=== PATIENT | female | born 1960 | race Caucasian/White ===

== ENCOUNTER 2020-09-21 22:45 | Observation (INO) | payer MEDICARE, MEDICAID, SELFPAY ==
--- NOTE | ~2020-09-21 | US_ITS ---
EXAMINATION: US venous doppler [facility] DATE: 09/22/2020 14:59 INDICATION: Lower extremity edema. TECHNIQUE: Grayscale ultrasound images without and with compression and Doppler ultrasound images of the bilateral lower extremity veins were obtained. COMPARISON: None. FINDINGS: The visualized portions of right common femoral vein, profunda (deep) femoral vein, femoral vein, pop liteal vein, peroneal veins, posterior tibial veins, and greater saphenous vein outflow are patent. The visualized portions of left common femoral vein, profunda femoral vein, femoral vein, popliteal v ein, peroneal veins, posterior tibial veins, and greater saphenous vein outflow are patent. IMPRESSION: 1. No deep venous thrombosis. Reviewed, dictated and finalized at location A.
--- NOTE | ~2020-09-21 | XR_ITS ---
EXAMINATION: XR chest 2V DATE: 09/21/2020 23:06 INDICATION: Shortness of breath and bilateral lower limb swelling. TECHNIQUE: PA and lateral views of the chest were obtained. COMPARISON: Chest radiograph dated 02/22/2016 FINDINGS: Cardiomegaly with pulmonary vascular congestion but without kristina pulmonary edema. On the lateral pro jection there is an unchanged of linear band of discoid atelectasis/scarring. Calcified nodule at the right apex with calcified mediastinal lymph nodes consistent with old granulomatous disease. No new airspace opacities, pulmonary edema, pleural effusion or pneumothorax. Mild thoracic spondylosis. IMPRESSION: 1. Cardiomegaly with pulmonary vascular congestion but without kristina pulmonary edema Reviewed, dictated and finalized at location A.
[2020-09-21 22:47] VITALS: BP 138/80; PULSE 76; RESP 20; TEMP 36.6; O2SAT 98
--- NOTE | 2020-09-21 22:51 | ECG_ITS ---
Measurements Intervals [place] Rate: 76 P: 38 WV: 193 QRS: -46 QRSD: 119 T: 139 QT: 407 QTc: 458 Interpretive Statements SINUS RHYTHM POSSIBLE LEFT ATRIAL ENLARGEMENT LEFT AXIS DEVIATION DELAYED PRECORDIAL R/S TRANSITION LEFT VENTRICULAR HYPERTROPHY AND ST-T CHANGE BORDERLINE ST-T WAVE ABNORMALITY- LATERAL LEADS BORDERLINE ECG Electronically Signed On 09-22-2020 5:49:49 CDT by Torito Siegel D.O.
[2020-09-21 23:17] LABS: Basophils Percent Auto 0.5 % (0.2-1.2); Eosinophils Absolute Auto 0.2 K/mm3 (0-0.3); Eosinophils Percent Auto 2.8 % (0-4.4); Hematocrit 36.8 % (37.0-47.0); Hemoglobin 10.9 g/dL (12.0-15.0); Immature Granulocyte Absolute 0.02 K/mm3 (0.00-0.031); Immature Granulocyte Percent A 0.4 % (0-0.5); Lymphocytes Absolute Auto 0.84 K/mm3 (0.9-3.2); Lymphocytes Percent Auto 14.8 % (18.3-44.2); Mean Corpuscular HGB Conc 29.6 g/dl (32-36); Mean Corpuscular Volume 84.4 fl (80-100); Mean Platelet Volume 9.6 fl (7.4-10.4); Monocytes Absolute Auto 0.3 K/mm3 (0.1-0.6); Neutrophils Absolute Auto 4.3 K/mm3 (1.3-6.7); Neutrophils Percent Auto 75.5 % (45.5-73.1); Platelet Count Result 300 k/mm3 (150-375); Red Blood Count 4.36 M/mm3 (4.2-5.4); Red Cell Distribution Width 15.9 % (11.5-14.5); White Blood Count 5.7 K/mm3 (4.5-10.0)
[2020-09-21 23:27] LABS: Anion Gap 6 mmol/L (8-16); Blood Urea Nitrogen 13 mg/dL (7-17); Calcium 8.7 mg/dL (8.4-10.2); Carbon Dioxide 28 mmol/L (22-30); Chloride 101 mmol/L (98-107); Estimated CRCL calculation 59 ml/min; Estimated Glomerular Filt Rate 57; Glucose 167 mg/dL (65-110); Potassium 3.4 mmol/L (3.4-5.0); Sodium 135 mmol/L (137-145)
[2020-09-21 23:29] LABS: Partial Thromboplastin Time 26.8 SECONDS (22.3-36.8); Prothrombin Time 13.3 Seconds (11.1-14.7)
[2020-09-21 23:39] LABS: NT Pro B Type Natriuretic Pept 5130 pg/mL (5-100); Troponin I < 0.012 ng/mL (0.000-0.034)
[2020-09-22] VITALS (16 sets, daily range): BP systolic 138–169; BP diastolic 85–102; PULSE 69–103; RESP 16–24; TEMP 35.9–36.7; O2SAT 91–100; BMI 28.8
--- NOTE | 2020-09-22 | ECHO_ITS ---
Patient Info Name: Yumiko Nielsen Age: 59 years : 1960 Gender: Female Ht: 66 in Wt: 178 lbs BSA: 1.96 m2 HR: 84 bpm BP: 160 / 100 mmHg Heart Rhythm: Sinus Rhythm Exam Date: 09/22/2020 9:26 AM Exam Location: [facility] Patient Status: Outpatient Admit Date: 09/22/2020 Staff Ordering Physician: Olvin Duran MD Transit Worker: vinh Attending Provider: Olvin Duran MD Exam Type: CA echo doppler color flow Study Info Indications R06.02 - Shortness of breath Complete two-dimensional, color flow and Doppler transthoracic echocardiogram is performed. Summary 1. Complete two-dimensional, color flow and Doppler transthoracic echocardiogram is performed. 2. Left ventricular chamber dimension is mildly enlarged. 3. Left ventricular systolic function is moderately reduced, estimated at 35-40% with relative sparing of the apex. 4. There is mildly increased left ventricular wall thickness. 5. The left ventricular diastolic function is grade III diastolic dysfunction. 6. Right ventricular chamber dimension is mildly enlarged. 7. Right ventricular systolic function is mildly reduced. 8. Left atrial chamber dimension is severely enlarged. 9. There is moderate somewhat eccentric mitral valve regurgitation. 10. There is moderate tricuspid valve regurgitation. 11. Severe pulmonary hypertension, estimated pulmonary arterial systolic pressure is 63 mmHg. Left Ventricle Left ventricular chamber dimension is mildly enlarged. Left ventricular systolic function is moderately reduced, estimated at 35-40% with relative sparing of the apex. There is mildly increased left ventricular wall thickness. The left ventricular diastolic function is grade III diastolic dysfunction. Right Ventricle Right ventricular chamber dimension is mildly enlarged. Right ventricular systolic function is mildly reduced. Prominent moderator band. Left Atria Left atrial chamber dimension is severely enlarged. Right Atria Right atrial chamber dimension is moderately enlarged. Aortic Valve The aortic valve is probable trileaflet. There is no aortic valve stenosis. There is trace aortic valve regurgitation. Pulmonic Valve The pulmonic valve is normal. There is trace pulmonic regurgitation. Mitral Valve The mitral valve has thickened leaflets. There is moderate somewhat eccentric mitral valve regurgitation. Mild mitral annular calcification. Tricuspid Valve The tricuspid valve leaflets are thickened. There is moderate tricuspid valve regurgitation. Severe pulmonary hypertension, estimated pulmonary arterial systolic pressure is 63 mmHg. Pericardium/Pleural The pericardium appears normal. There is no pericardial effusion. Inferior Vena Cava Normal inferior vena cava with >50% collapse upon inspiration consistent with normal right atrial pressure, 5 mmHg. Aorta The aortic root size at the sinus of Valsalva is normal. Left Ventricular Outflow Tract Name Value Normal LVOT 2D LVOT Diameter 2.1 cm LVOT Doppler LVOT Peak Gradient 5 mmHg LVOT Mean Gradient 3 mm
--- NOTE | 2020-09-22 01:48 | ED.SOB ---
HPI - SOB/Dyspnea General Chief Complaint: Shortness of Breath/Dyspnea Stated Complaint: LUMPS IN RT LEG- FEET NOW SWOLLEN Time Seen by Provider: 09/22/20 01:29 Source: patient and RN notes reviewed Mode of arrival: ambulatory Limitations: no limitations History of Present Illness HPI Narrative: This is 59 year old female with history of COPD, CHF who presents for evaluation of shortness of breath and leg swelling. Patient noticed chest tightness and orthopnea 3 weeks ago. She is having difficulty sleeping so she started taking her Lasix and spironolactone. She states she does not like her side effects of her Lasix so she does not take it daily. She has been taking 40 mg daily for 3 weeks. She continues to have intermittent nonradiating chest tightness and her legs began swelling 3 days ago. She denies fever, chills, nausea or vomiting. Related Data Home Medications Medication Instructions Recorded Confirmed albuterol sulfate [Ventolin HFA] 2 puff INHALATION DAILY 09/22/20 09/22/20 amlodipine 5 mg PO DAILY 09/22/20 09/22/20 carvedilol 25 mg PO BID 09/22/20 09/22/20 ocpetyozsoa-jqsrhlbmh-cjzicaet 2 inh INHALATION DAILY 09/22/20 09/22/20 [Trelegy Ellipta] furosemide [Lasix] 40 mg PO DAILY 09/22/20 09/22/20 glimepiride 1 mg PO BID 09/22/20 09/22/20 hydrocodone-acetaminophen 1 tablet PO QID 09/22/20 09/22/20 insulin degludec [Tresiba 28 unit SUBCUT DAILY 09/22/20 09/22/20 FlexTouch U-200] lisinopril 5 mg PO DAILY 09/22/20 09/22/20 spironolactone 25 mg PO DAILY 09/22/20 09/22/20 Allergies Allergy/AdvReac Type Severity Reaction Status Date / Time atorvastatin Allergy Severe JOINT ACHES Verified 09/22/20 01:12 procaine AdvReac Palpitation Verified 09/22/20 01:12 s Review of Systems Review of Systems: All systems reviewed & are unremarkable except as noted in HPI and below Constitutional: Constitutional: Denies chills and Denies fever(s) ENT: Reports nasal congestion Cardiovascular: Cardiovascular: Reports chest pain, Denies radiating jaw, neck or arm pain and Reports orthopnea Respiratory: Respiratory: Reports chest congestion, Reports cough, Reports dyspnea and Reports wheezing Gastrointestinal: Gastrointestinal: Denies abdominal pain, Denies nausea and Denies vomiting [facility] Past Medical History Medical History (Updated 09/22/20 @ 07:55 by Genia Valladares MD) COPD (chronic obstructive pulmonary disease) Diabetes mellitus Hyperlipidemia Hypertension Non-ischemic cardiomyopathy Surgical History Surgical History (Updated 09/22/20 @ 07:53 by Genia Valladares MD) H/O: hysterectomy Family History Family History Father Hypertension Mother Hypertension Family history of diabetes mellitus in first degree relative Social History Social History Smoking packs per day: 1 Smoking cigarettes per day: 20.0 Years smoked: 41 Smoking pack-years: 41.00 Smoking status: Current every day smoker Tobacco type: cigarettes Alcohol intake: never Substance use: current Substance use type: marijuana Gender identity (if verbalized by the patient): Female Spiritual care concerns: No Exam Const: General: no acute distress and alert Orientation/consciousness: patient oriented x3 Eyes: EOM: EOMs intact bilaterally Resp: Effort & Inspection: normal respiratory effort, not labored, no retractions and not tachypneic Auscultation: wheezes expiratory wheezes and throughout Cardio: Rate: regular rate Rhythm: regular rhythm Heart sounds: no murmurs GI: GI Palp: Yes Soft to palpation, No Tenderness to palpation present (GI) and No Guarding due to palpation present (GI) Auscultation: normal bowel sounds Neuro: General: patient oriented x3 and moves all extremities Extrem: General: edema bilateral (bilateral pedal and lower leg edema, nonpitting) Psych: Mental Status: mental status grossly normal Affect: normal
[2020-09-22] MEDS: FUROSEMIDE INJ 40 MG/4 ML VIAL IV PUSH ×3 (02:16→20:18)
[2020-09-22] MEDS: predniSONE 20 MG TABLET 60 MG PO ×2 (02:19→09:31)
[2020-09-22 02:44] LABS: Alveolar/Arterial O2 Gradient 32.4 mmHg; Base Excess ABG 3.1 mEq/l (+/-2.0); Carboxyhemoglobin 2.8 % THb (0-2.0); Fractional Inspired Oxygen 21 %; HCO3 ABG 28.5 mEq/l (22.0-26.0); Methemoglobin ABG 0.2 %THb (0-1.5); Oxygen Content ABG 14.6 %vol (16.0-22.0); Oxygen Saturation ABG 91.3 % (95.0-100.0); Oxyhemoglobin 86.3 % THb (90.0-100.0); PCO2 ABG 46.9 mmHg (35.0-45.0); PO2 ABG 61.2 mmHg (80.0-100.0); PO2 FiO2 Ratio Arterial Blood 2.91 %; Reduced Hemoglobin 10.7 %THb (0-5.0); Site Drawn RIGHT BRACHIAL; pH ABG 7.402 (7.350-7.450)
[2020-09-22] MEDS: ALBUTEROL SULFATE NEB 2.5 MG/0.5 ML INH 5 MG INHALATION ×3 (02:51→22:43)
[2020-09-22] MEDS: IPRATROPIUM BR 0.02% INH SOLN 0.5 MG/2.5 ML VIAL INHALATION ×3 (02:51→22:43)
--- NOTE | 2020-09-22 04:58 | ADMGEN ---
This patient, Yumiko Nielsen, was admitted to Medical Room 256-. Patient/family oriented to hospital policies and general routines including ID bracelet, bed and alarms, visiting hours, pain management, procedures, bathroom and other care routines, personal items, smoking policy, room service/diet, and visiting hours. Information on how to activate the Rapid Response Team has been discussed. Patient/Family are encouraged to report perceived risks to care and to ask questions if they do not understand what they are told or what they should do.
--- NOTE | 2020-09-22 05:58 | PM.IMHP ---
H&P: HPI History of Present Illness Date/Time: 09/22/20 05:58 Chief Complaint: SHORTNESS OF BREATH Narrative: This is 59 year old female with history of COPD, CHF who presents for evaluation of shortness of breath and leg swelling WHICH HAS BEEN WORSENING FOR THE PAST FEW WEEKS. Patient noticed LEG SWELLING AND SHE STARTED TAKING LASIX WITHOUT ANY IMPROVEMENT. SHE DENIES ANY FEVER CHILLS NAUSEA VOMITING. SHE ALSO NOTES MULTIPLE SKIN BUMPS FOR WHICH SHE HAD PUT BAND AID ON. SHE IS FEELING BETTER AFTER SHE GOT HER LASIX DOSE IN THE ER ER EVALUATION SHOWED NORMAL WHITE COUNT BNP OF 5 130 TROPONIN NEGATIVE CHEST X-RAY WITH CARDIOMEGALY WITH PULMONARY VASCULAR CONGESTION WITHOUT SHANTELL PULMONARY EDEMA. Review of Systems Review of Systems: - CONSTITUTIONAL: Denies weight loss, fever and chills. - HEENT: Denies changes in vision and hearing - RESPIRATORY: REPORT SOB and DENIES cough. - CV: Denies palpitations and CP. - GI: Denies abdominal pain, nausea, vomiting and diarrhea. - : Denies dysuria and urinary frequency. - MSK: Denies myalgia and joint pain. - SKIN: Denies rash and pruritus. - NEUROLOGICAL: Denies headache and syncope. - PSYCHIATRIC: Denies recent changes in mood. Denies anxiety and depression. All systems reviewed & are unremarkable except as noted in HPI and below Constitutional: Constitutional: Reports fatigue and Reports weakness Neurologic: Reports weakness Endocrine: Endocrine: Reports fatigue [facility] Past Medical History Medical History (Updated 09/22/20 @ 06:03 by Olvin Duran MD) COPD (chronic obstructive pulmonary disease) Diabetes mellitus Hyperlipidemia Hypertension Non-ischemic cardiomyopathy Family History Family History Father Hypertension Mother Hypertension Family history of diabetes mellitus in first degree relative Social History Social History Smoking packs per day: 1 Smoking cigarettes per day: 20.0 Years smoked: 41 Smoking pack-years: 41.00 Smoking status: Current every day smoker Tobacco type: cigarettes Alcohol intake: never Substance use: current Substance use type: marijuana Gender identity (if verbalized by the patient): Female Spiritual care concerns: No Meds Home Medications and Allergies Home Medications Medication Instructions Recorded Confirmed Type albuterol sulfate [Ventolin HFA] 2 puff INHALATION DAILY 09/22/20 09/22/20 History amlodipine 5 mg PO DAILY 09/22/20 09/22/20 History carvedilol 25 mg PO BID 09/22/20 09/22/20 History aywvdvjkyqr-lqldfxeow-arpfilcl 2 inh INHALATION DAILY 09/22/20 09/22/20 History [Trelegy Ellipta] furosemide [Lasix] 40 mg PO DAILY 09/22/20 09/22/20 History glimepiride 1 mg PO BID 09/22/20 09/22/20 History hydrocodone-acetaminophen 1 tablet PO QID 09/22/20 09/22/20 History insulin degludec [Tresiba 28 unit SUBCUT DAILY 09/22/20 09/22/20 History FlexTouch U-200] lisinopril 5 mg PO DAILY 09/22/20 09/22/20 History spironolactone 25 mg PO DAILY 09/22/20 09/22/20 History Allergies Allergy/AdvReac Type Severity Reaction Status Date / Time atorvastatin Allergy Severe JOINT ACHES Verified 09/22/20 01:12 procaine AdvReac Palpitation Verified 09/22/20 01:12 s Vital Signs Vital Signs - 24 hr 09/21/20 22:47 09/22/20 00:52 09/22/20 01:06 Temperature 97.9 F Pulse Rate 76 77 Respiratory Rate 20 24 H Blood Pressure 138/80 152/93 H Pulse Oximetry 98 98 98 09/22/20 02:52 09/22/20 02:56 09/22/20 02:59 Temperature Pulse Rate 75 70 69 Respiratory Rate 16 16 21 H Blood Pressure Pulse Oximetry 100 09/22/20 03:09 09/22/20 05:09 Temperature 97.6 F Pulse Rate 91 84 Respiratory Rate 17 18 Blood Pressure 157/101 H 160/100 H Pulse Oximetry 95 96 Exam Narrative: Const: General: no acute distress and alert Orientation/consciousness: patient oriented x3 Eyes: EOM: EOMs intact
[2020-09-22] MEDS: CEPHALEXIN 500 MG CAPSULE PO ×2 (07:14→13:20)
[2020-09-22] MEDS: INSULIN ASPART (*BKC) 100 UNITS/ML SUB-Q ×2 (07:18→13:20)
[2020-09-22 07:34] LABS: Glucose Point of Care 256 mg/dl (65-105)
[2020-09-22] MEDS: amLODIPine BESYLATE 5 MG TABLET PO (09:31)
[2020-09-22] MEDS: SPIRONOLACTONE 25 MG TABLET PO (09:31)
[2020-09-22] MEDS: GLIMEPIRIDE 1 MG TABLET PO (09:32)
[2020-09-22] MEDS: HYDROcodone/acetaminophen (*CRX) 7.5-325 MG TABLET 1 TAB PO ×3 (09:32→20:18)
[2020-09-22] MEDS: carvediloL 25 MG TABLET PO ×2 (09:32→17:50)
[2020-09-22] MEDS: lisinopriL 5 MG TABLET PO (09:32)
[2020-09-22] MEDS: ENOXAPARIN 40 MG/0.4 ML SYRINGE SUB-Q (09:35)
--- NOTE | 2020-09-22 10:09 | PM.CNCAR ---
Assessment and Plan Assessment and plan (1) Acute exacerbation of CHF (congestive heart failure): Code(s): I50.9 - Heart failure, unspecified Status: Acute Assessment and Plan: - acute on chronic heart failure with reduced ejection fraction EF 46% 11/2019 echocardiogram in our office. History of EF 30-35%, stress test without ischemia but coronary angiography not performed. - CHF exacerbation secondary to medication noncompliance. 2D echocardiogram pending. Will assess EF, mitral regurgitation severity, pulmonary pressures, chamber size. Recommendation follow. - Symptomatically improved with IV Lasix. Continue IV diuresis, Document accurate input and output, daily weight, less than 2 g daily sodium intake. monitor renal function electrolytes closely. DVT prophylaxis. - Resume Spironolactone. - If EF has declined further I would like to transition her to Entresto 24/26 mg b.i.d. if insurance permits with 36 hour washout of lisinopril. -Otherwise, resume home medical therapy with exception of IV diuresis for now. I believe her presentation is a combination of COPD and CHF exacerbation. Further recommendations after review 2D echocardiogram. While patient is not an ideal candidate for surgical percutaneous intervention if required given her history of noncompliance we certainly will discuss all appropriate options. - Amlodipine may be contributing to lower extremity edema as well. Certainly could up titrate lisinopril if continued although preference to transition to Entresto if possible. Will review echo. -Apnea Link overnight advised to screen for CHRYSTAL. (2) Cardiomyopathy: Code(s): I42.9 - Cardiomyopathy, unspecified Status: Acute Assessment and Plan: As above. History of presumed nonischemic cardiomyopathy although invasive angiography not performed negative ischemic evaluation in the past 2 years. Patient has multiple risk factors for CAD including hypertension, diabetes mellitus, ongoing tobacco abuse, and dyslipidemia. Patient has a history of prior stroke 2012. She does not appear to be on aspirin which would be strongly advised For cardiovascular risk reduction. Concern with regards to patient's GERD symptoms off PPI.. (3) Noncompliance w/medication treatment due to intermit use of medication: Code(s): Z91.14 - Patient's other noncompliance with medication regimen Status: Acute Assessment and Plan: As above. Patient has not been compliant with her diuretic therapy until recently but did not note a favorable response. Feels she has significant side effects of medications although majority of her symptoms sound to be secondary to GI issues admitted GERD and/or possible peptic ulcer disease. Counseled the importance of compliance with medications. Patient admits her depression complicates her consistency as well as concern for side effects. (4) COPD exacerbation: Code(s): J44.1 - Chronic obstructive pulmonary disease with (acute) exacerbation Status: Acute Assessment and Plan: Per primary service. Bronchodilator therapy. Patient started on oral prednisone. Need to monitor volume status very closely. (5) Hypertension associated with diabetes: Code(s): E11.59 - Type 2 diabetes mellitus with other circulatory complications; I15.2 - Hypertension secondary to endocrine disorders Status: Acute Assessment and Plan: Uncontrolled. See above. (6) Tobacco abuse: Code(s): Z72.0 - Tobacco use Status: Acute Assessment and Plan: Discussed at length. Patient expressed an illogical fear that if she quit smoking she would only then developed cancer. we discussed that ongoing smoking alone will significantly increase her risk for a number of different cancers and that in fact the primary weight reduce this risk is to quit smoking immediately. Patient did not seem to agree with this fact. (7) Dyslipidemia associate
[2020-09-22 12:38] LABS: Glucose Point of Care 280 mg/dl (65-105)
--- NOTE | 2020-09-22 16:03 | PM.CNGS ---
Assessment and Plan Assessment and plan (1) Cutaneous abscess: Code(s): L02.91 - Cutaneous abscess, unspecified Status: Acute Assessment and Plan: Small, superficial cutaneous abscess on left gluteal area that does have some expressible purulent drainage. This is not painful or bothering the patient. I discussed the option of doing a bedside I&D with local anesthetic. She has an allergy to some type of local anesthetic (although listed as procaine), she is unsure which one it was. This gave her palpitations and she did not tolerate it well. I discussed the local anesthetic I would be using and the possible side effects of this. After thorough discussion, the patient decided she does not want any bedside I&D and would like to take oral antibiotics and monitor to see if this improves. If this does not improve with antibiotics, considering she is also now on steroids, and/or becomes bothersome and she would like intervention in the future we could consider it then as well. The right hip has a small nodule but no purulent drainage and appears very superficial and stable. Would recommend monitoring this and continuing oral antibiotics for now. If this were to progress, then we could consider surgical intervention then. I will get a culture of the drainage from the left buttock abscess. Would recommend considering to switch her to an oral antibiotic with MRSA coverage, since she reports a history of such. I will also order dressing changes with silver gel for antimicrobial coverage and to keep it moist and covered. No surgical intervention planned at this time. Thank you for allowing us to see the patient in consultation. (2) Diabetes mellitus: Code(s): E11.9 - Type 2 diabetes mellitus without complications Status: Acute (3) Acute exacerbation of CHF (congestive heart failure): Code(s): I50.9 - Heart failure, unspecified Status: Acute (4) COPD exacerbation: Code(s): J44.1 - Chronic obstructive pulmonary disease with (acute) exacerbation Status: Acute (5) Hypertension associated with diabetes: Code(s): E11.59 - Type 2 diabetes mellitus with other circulatory complications; I15.2 - Hypertension secondary to endocrine disorders Status: Acute (6) Tobacco abuse: Code(s): Z72.0 - Tobacco use Status: Acute (7) History of hidradenitis suppurativa: Code(s): Z87.2 - Personal history of diseases of the skin and subcutaneous tissue Status: Acute Additional Plan I have discussed the patient's case and plan of care with Dr. Douglas. History of Present Illness Consult details Consult date: 09/22/20 Reason for consult: other (Cutaneous abscess on bilateral hips) Requesting physician: Olvin Duran MD Narrative: This is a 59-year-old female with multiple medical problems, who presented to the emergency department with complaints of shortness of breath and bilateral lower extremity swelling. She has a history of congestive heart failure, hypertension, COPD, diabetes, and presumed nonischemic cardiomyopathy. She was found to have a COPD exacerbation and acute exacerbation of her congestive heart failure. She is being treated for such with diuresis, nebulizers, and steroids. She was found to have to small skin abscesses and was started on cephalexin 500 mg p.o. q.i.d.. Wound care was consulted and recommended surgical evaluation for these abscesses. The patient is now seen on the medical floor. She reports that she has had superficial boils that come and go for years. She has never required an incision and drainage in the past. Typically she will use witch Olena and dressings, and express purulent drainage on her own. They resolve without any further management. She says she typically notices a flare up of these skin infections when her blood sugar is elevated. She reportedly has seen a specialist in the past and has been diagnosed with hidradenitis suppurativa.
--- NOTE | 2020-09-22 17:22 | PM.IMPN ---
Progress Note: A&P Assessment and Plan (1) History of hidradenitis suppurativa: Code(s): Z87.2 - Personal history of diseases of the skin and subcutaneous tissue Status: Acute (2) Cutaneous abscess: Qualifiers: Site of cutaneous abscess: buttock Qualified Code(s): L02.31 - Cutaneous abscess of buttock Code(s): L02.91 - Cutaneous abscess, unspecified Status: Acute (3) Tobacco abuse: Code(s): Z72.0 - Tobacco use Status: Acute (4) Dyslipidemia associated with type 2 diabetes mellitus: Code(s): E11.69 - Type 2 diabetes mellitus with other specified complication; E78.5 - Hyperlipidemia, unspecified Status: Acute (5) Hypertension associated with diabetes: Code(s): E11.59 - Type 2 diabetes mellitus with other circulatory complications; I15.2 - Hypertension secondary to endocrine disorders Status: Acute (6) Diabetes mellitus: Qualifiers: Diabetes mellitus type: type 2 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 Diabetes mellitus complication status: with skin complications Diabetes mellitus complication detail: with dermatitis Qualified Code(s): E11.620 - Type 2 diabetes mellitus with diabetic dermatitis Code(s): E11.9 - Type 2 diabetes mellitus without complications Status: Acute (7) Noncompliance w/medication treatment due to intermit use of medication: Code(s): Z91.14 - Patient's other noncompliance with medication regimen Status: Acute (8) Cardiomyopathy: Qualifiers: Cardiomyopathy type: unspecified Qualified Code(s): I42.9 - Cardiomyopathy, unspecified Code(s): I42.9 - Cardiomyopathy, unspecified Status: Acute (9) COPD exacerbation: Code(s): J44.1 - Chronic obstructive pulmonary disease with (acute) exacerbation Status: Acute (10) Acute exacerbation of CHF (congestive heart failure): Qualifiers: Heart failure type: systolic Qualified Code(s): I50.23 - Acute on chronic systolic (congestive) heart failure Code(s): I50.9 - Heart failure, unspecified Status: Acute Additional Plan Failure with reduced ejection fraction exacerbation: Continue with IV Lasix 40 b.i.d. Echo awaited Cardiology is recommending to follow-up with the EF and if it is reduced and before that they would consider starting the patient Entresto with 36 washout period of Moustapha inhibitor. Most likely COPD exacerbation so we will discontinue prednisone. Gluteal abscess: Given the purulent nature the abscess as per patient reports general surgery recommended the patient be switched to an antibiotic with MRSA coverage Patient was started on cephalexin by overnight hospitalist. She will now be transitioned to p.o. clindamycin 300 mg t.i.d. Due to her allergies to local anesthetic, and patient preference, General surgery has decided to defer bedside I&D and patient received p.o. antibiotics. Should she become febrile or worsens or develops new leukocytosis we will consider reaching out to General surgery and requesting for I&D. Hypertension: We will increase amlodipine to 10 mg daily Increase lisinopril to 10 mg daily Appreciate cardiology recommendations Two diabetes mellitus: Will hold off on any p.o. oral hypoglycemics Order hemoglobin A1c for the a.m. Lantus 10 units started Sliding scale insulin low-dose Hypoglycemia protocol Time Spent With Patient Time with patient: 25 - 35 minutes Subjective Date/time seen: 09/22/20 17:22 59-year-old female with past medical history significant for COPD, heart failure with reduced ejection fraction, hypertension, hyperlipidemia and type 2 diabetes mellitus presents with complaints of shortness of bread and bilateral lower extremity swelling. She is being managed as a case of CHF exacerbation. She is continuing to receive IV Lasix. In the ED she was also started on p.o. prednisone for possible
[2020-09-22 18:02] LABS: Glucose Point of Care 284 mg/dl (65-105)
[2020-09-22] MEDS: MAG HYDROX/AL HYDROX/SIMETH 30 ML UDC PO (20:17)
[2020-09-22] MEDS: INSULIN GLARGINE (*BKC) 100 UNITS/ML 28 UNITS SUB-Q (20:21)
[2020-09-22] MEDS: CLINDAMYCIN HCL 150 MG CAP 300 MG PO (22:17)
[2020-09-22] MEDS: INSULIN ASPART (*BKC) 100 UNITS/ML 12 UNITS SUB-Q (22:17)
[2020-09-22 23:15] LABS: Glucose Point of Care 409 mg/dl (65-105)
[2020-09-23] VITALS (8 sets, daily range): BP systolic 144–155; BP diastolic 74–86; PULSE 66–80; RESP 16–20; TEMP 36.1–36.2; O2SAT 99–100
[2020-09-23 00:34] LABS: Glucose Point of Care 149 mg/dl (65-105)
[2020-09-23] MEDS: HYDROcodone/acetaminophen (*CRX) 5-325 MG TABLET 1 TAB PO (01:41)
[2020-09-23] MEDS: IPRATROPIUM BR 0.02% INH SOLN 0.5 MG/2.5 ML VIAL INHALATION ×3 (04:21→14:10)
[2020-09-23] MEDS: ALBUTEROL SULFATE NEB 2.5 MG/0.5 ML INH 5 MG INHALATION ×3 (04:21→14:09)
[2020-09-23 05:44] LABS: Basophils Percent Auto 0.1 % (0.2-1.2); Hematocrit 37.5 % (37.0-47.0); Hemoglobin 11.4 g/dL (12.0-15.0); Immature Granulocyte Absolute 0.03 K/mm3 (0.00-0.031); Immature Granulocyte Percent A 0.4 % (0-0.5); Lymphocytes Absolute Auto 0.63 K/mm3 (0.9-3.2); Lymphocytes Percent Auto 9.1 % (18.3-44.2); Mean Corpuscular HGB Conc 30.4 g/dl (32-36); Mean Corpuscular Hemoglobin 24.9 pg (26-34); Mean Corpuscular Volume 82.1 fl (80-100); Mean Platelet Volume 9.8 fl (7.4-10.4); Monocytes Absolute Auto 0.6 K/mm3 (0.1-0.6); Monocytes Percent Auto 7.9 % (2.6-8.5); Neutrophils Absolute Auto 5.7 K/mm3 (1.3-6.7); Neutrophils Percent Auto 82.5 % (45.5-73.1); Platelet Count Result 309 k/mm3 (150-375); Red Blood Count 4.57 M/mm3 (4.2-5.4); Red Cell Distribution Width 15.6 % (11.5-14.5)
[2020-09-23 06:00] LABS: Alanine Aminotransferase 15 U/L (4-35); Albumin Level 3.3 g/dL (3.5-5.1); Alkaline Phosphatase 84 U/L (38-126); Anion Gap 5 mmol/L (8-16); Aspartate Amino Transferase 25 U/L (14-36); Bilirubin,Total 0.6 mg/dL (0.2-1.3); Blood Urea Nitrogen 21 mg/dL (7-17); Calcium 8.7 mg/dL (8.4-10.2); Carbon Dioxide 31 mmol/L (22-30); Chloride 99 mmol/L (98-107); Estimated CRCL calculation 72 ml/min; Estimated Glomerular Filt Rate > 60; Glucose 113 mg/dL (65-110); Potassium 3.1 mmol/L (3.4-5.0); Sodium 135 mmol/L (137-145)
[2020-09-23] MEDS: CLINDAMYCIN HCL 150 MG CAP 300 MG PO ×2 (06:10→13:22)
[2020-09-23 08:22] LABS: Glucose Point of Care 97 mg/dl (65-105)
[2020-09-23] MEDS: ENOXAPARIN 40 MG/0.4 ML SYRINGE SUB-Q (08:28)
[2020-09-23] MEDS: SPIRONOLACTONE 25 MG TABLET PO (08:29)
[2020-09-23] MEDS: amLODIPine BESYLATE 5 MG TABLET 10 MG PO (08:29)
[2020-09-23] MEDS: carvediloL 25 MG TABLET PO (08:29)
[2020-09-23] MEDS: ASPIRIN 81 MG CHEWABLE TABLET PO (08:31)
[2020-09-23] MEDS: NICOTINE (*PBKC) 21 MG PATCH 1 PATCH TRANSDERM (08:31)
[2020-09-23] MEDS: FUROSEMIDE INJ 40 MG/4 ML VIAL IV PUSH (08:31)
[2020-09-23] MEDS: lisinopriL 10 MG TABLET PO (08:33)
[2020-09-23] MEDS: HYDROcodone/acetaminophen (*CRX) 7.5-325 MG TABLET 1 TAB PO ×2 (08:46→13:22)
[2020-09-23] MEDS: SILVERGEL (ELTA) 45 ML 1 APPLIC TOPICAL (09:05)
[2020-09-23] MEDS: POTASSIUM CHLORIDE 20 MEQ TABLET.ER 40 MEQ PO (09:05)
[2020-09-23 12:06] LABS: Glucose Point of Care 134 mg/dl (65-105)
--- NOTE | 2020-09-23 13:13 | PM.PNCARD ---
Progress Note: A&P Assessment and Plan (1) Acute exacerbation of CHF (congestive heart failure): Qualifiers: Heart failure type: systolic Qualified Code(s): I50.23 - Acute on chronic systolic (congestive) heart failure Code(s): I50.9 - Heart failure, unspecified Status: Acute Assessment and Plan: -Acute on chronic heart failure with reduced ejection fraction EF 46% 11/2019 echocardiogram in our office. History of EF 30-35%, stress test without ischemia but coronary angiography not performed. -CHF exacerbation secondary to medication noncompliance. Patient now appears euvolemic. Feels much better overall. Change to Lasix 60 mg p.o. daily. Continue spironolactone 25 mg daily. Insurance denied Entresto. Resume lisinopril 5 mg daily. Re-attempt approval as outpatient. Compliance counseling performed. EF 35 % by echocardiogram. Severe pulmonary hypertension. -Stable for discharge home. Follow-up with Dr. Gaytan in 2 weeks. (2) Cardiomyopathy: Qualifiers: Cardiomyopathy type: unspecified Qualified Code(s): I42.9 - Cardiomyopathy, unspecified Code(s): I42.9 - Cardiomyopathy, unspecified Status: Acute Assessment and Plan: As above. History of presumed nonischemic cardiomyopathy although invasive angiography not performed negative ischemic evaluation in the past 2 years. Patient has multiple risk factors for CAD including hypertension, diabetes mellitus, ongoing tobacco abuse, and dyslipidemia. Patient has a history of prior stroke 2012. aspirin 81 mg daily as tolerated. PPI. (3) Noncompliance w/medication treatment due to intermit use of medication: Code(s): Z91.14 - Patient's other noncompliance with medication regimen Status: Acute Assessment and Plan: As above. Patient has not been compliant with her diuretic therapy until recently but did not note a favorable response. Feels she has significant side effects of medications although majority of her symptoms sound to be secondary to GI issues admitted GERD and/or possible peptic ulcer disease. However, she is apparently tolerating her medical therapy at this time. Counseled the importance of compliance with medications. (4) COPD exacerbation: Code(s): J44.1 - Chronic obstructive pulmonary disease with (acute) exacerbation Status: Acute Assessment and Plan: Per primary service. Bronchodilator therapy. Patient started on oral prednisone. Need to monitor volume status very closely. (5) Hypertension associated with diabetes: Code(s): E11.59 - Type 2 diabetes mellitus with other circulatory complications; I15.2 - Hypertension secondary to endocrine disorders Status: Acute Assessment and Plan: Uncontrolled. See above. Resume lisinopril 5 mg daily. Anticipate up titration as an outpatient. Continue carvedilol 25 mg twice daily. Lasix 60 mg daily at discharge. (6) Tobacco abuse: Code(s): Z72.0 - Tobacco use Status: Acute Assessment and Plan: Smoking cessation counseling. (7) Dyslipidemia associated with type 2 diabetes mellitus: Code(s): E11.69 - Type 2 diabetes mellitus with other specified complication; E78.5 - Hyperlipidemia, unspecified Status: Acute Assessment and Plan: Reported joint aches with statin therapy atorvastatin namely. Ideally rechallenge with alternative statin, however, patient has chronic pain issues on narcotics. Subjective Date/time seen: Date of service:09/23/20 13:13 Follow-up for CHF, noncompliance the patient feels much better today. Lying flat in bed no shortness of breath no chest pain, dizziness. No edema. Denies abdominal pain, chest pain or palpitations. She is much happier today and feels very comfortable. She was told she was going to be discharged home today and feels ready and is excited. Review of Systems Review of Systems: All systems reviewed & are
--- NOTE | 2020-09-23 15:01 | PM.DS ---
DS: Admitting Diagnosis Admitting Diagnosis CHF exacerbation DS: Discharge Diagnosis Discharge Diagnosis (1) History of hidradenitis suppurativa: Code(s): Z87.2 - Personal history of diseases of the skin and subcutaneous tissue Status: Acute (2) Cutaneous abscess: Qualifiers: Site of cutaneous abscess: buttock Qualified Code(s): L02.31 - Cutaneous abscess of buttock Code(s): L02.91 - Cutaneous abscess, unspecified Status: Acute (3) Tobacco abuse: Code(s): Z72.0 - Tobacco use Status: Acute (4) Dyslipidemia associated with type 2 diabetes mellitus: Code(s): E11.69 - Type 2 diabetes mellitus with other specified complication; E78.5 - Hyperlipidemia, unspecified Status: Acute (5) Diabetes mellitus: Qualifiers: Diabetes mellitus type: type 2 Diabetes mellitus care home insulin use: unspecified care home insulin use status Diabetes mellitus complication status: with skin complications Diabetes mellitus complication detail: with dermatitis Qualified Code(s): E11.620 - Type 2 diabetes mellitus with diabetic dermatitis Code(s): E11.9 - Type 2 diabetes mellitus without complications Status: Acute (6) Hypertension associated with diabetes: Code(s): E11.59 - Type 2 diabetes mellitus with other circulatory complications; I15.2 - Hypertension secondary to endocrine disorders Status: Acute (7) Noncompliance w/medication treatment due to intermit use of medication: Code(s): Z91.14 - Patient's other noncompliance with medication regimen Status: Acute (8) Acute exacerbation of CHF (congestive heart failure): Qualifiers: Heart failure type: systolic Qualified Code(s): I50.23 - Acute on chronic systolic (congestive) heart failure Code(s): I50.9 - Heart failure, unspecified Status: Acute (9) COPD exacerbation: Code(s): J44.1 - Chronic obstructive pulmonary disease with (acute) exacerbation Status: Acute (10) Cardiomyopathy: Qualifiers: Cardiomyopathy type: unspecified Qualified Code(s): I42.9 - Cardiomyopathy, unspecified Code(s): I42.9 - Cardiomyopathy, unspecified Status: Acute DS: Summary Hospital Course Reason for hospitalization: CHF exacerbation Hospital Course: 59-year-old female with past medical history significant for COPD, heart failure with reduced ejection fraction, hypertension, hyperlipidemia and type 2 diabetes mellitus presents with complaints of shortness of bread and bilateral lower extremity swelling. She is being managed as a case of CHF exacerbation. She is continuing to receive IV Lasix. In the ED she was also started on p.o. prednisone for possible COPD exacerbation, which was later discontinued on admission. She was also noted to have folliculitis on bilateral gluteal areas with some erythema for which reason General surgery is being brought on board. Cardiology is also following the patient for CHF exacerbation an echo was ordered the results of which are as follows: 1. Complete two-dimensional, color flow and Doppler transthoracic echocardiogram is performed. 2. Left ventricular chamber dimension is mildly enlarged. 3. Left ventricular systolic function is moderately reduced, estimated at 35-40% with relative sparing of the apex. 4. There is mildly increased left ventricular wall thickness. 5. The left ventricular diastolic function is grade III diastolic dysfunction. 6. Right ventricular chamber dimension is mildly enlarged. 7. Right ventricular systolic function is mildly reduced. 8. Left atrial chamber dimension is severely enlarged. 9. There is moderate somewhat eccentric mitral valve regurgitation. 10. There is moderate tricuspid valve regurgitation. 11. Severe pulmonary hypertension, estimated pulmonary arterial systolic pressure is 63 mmHg. The following additional pertinent information during this admission: 1. H
== END 2020-09-23 16:20 | disposition home or self-care (01) ==
LOC: ANHED 09-22 02:03 → ANH2MED 09-22 05:02
PROVIDERS: Family Medicine; Admitting Provider Internal Medicine; Emergency Provider General Practice; PCP Internal Medicine Infectious Disease; Visit Provider Internal Medicine
DX: J44.1 Chronic obstructive pulmonary disease with (acute) exacerbation (principal); I11.0 Hypertensive heart disease with heart failure; I50.9 Heart failure, unspecified; L02.31 Cutaneous abscess of buttock; L02.416 Cutaneous abscess of left lower limb; L02.415 Cutaneous abscess of right lower limb; I42.8 Other cardiomyopathies; E78.5 Hyperlipidemia, unspecified; I34.0 Nonrheumatic mitral (valve) insufficiency; I36.1 Nonrheumatic tricuspid (valve) insufficiency; E11.620 Type 2 diabetes mellitus with diabetic dermatitis; E11.59 Type 2 diabetes mellitus with other circulatory complications; F17.210 Nicotine dependence, cigarettes, uncomplicated; F12.90 Cannabis use, unspecified, uncomplicated; Z79.51 Long term (current) use of inhaled steroids; Z79.4 Long term (current) use of insulin; Z79.84 Long term (current) use of oral hypoglycemic drugs; Z79.891 Long term (current) use of opiate analgesic; Z91.14 Patient's other noncompliance with medication regimen; Z86.73 Personal history of transient ischemic attack (TIA), and cerebral infarction without residual deficits; Z86.14 Personal history of Methicillin resistant Staphylococcus aureus infection; Z87.2 Personal history of diseases of the skin and subcutaneous tissue
CPT/HCPCS: 36415; 36600; 71046; 80048; 80053; 82375; 82805; 82948; 83036; 83050; 83880; 84484; 85025; 85610; 85730; 93005; 93306; 93970; 94640; 96372; 96374; 96376; 99285; A9270; G0378; J1650; J1815; J1940; J7512